=== PATIENT | male | born 1965 | race Caucasian/White ===

== ENCOUNTER 2018-11-19 06:00 | Day surgery (SDC) | payer BC ==
[~2018-11-19] VITALS: Ht 167 cm; Wt 83.2 kg
[~2018-11-19 06:00] MED LIST: TRAM50 PO
--- NOTE | 2018-11-19 07:21 | NUR ---
"Day surgery RN | to OR Patient ambulatory on admit. VSS. IV patent and flowing well. Skin prepped. Both doctors have seen patient. Patient states ride home available."
--- NOTE | 2018-11-19 07:27 | NUR ---
"DAY SURGERY RN | WAITING IN DAY SURGERY FOR DR. ZAMORANO TO FINISH PINK SHEET, TO OR NOW."
--- NOTE | 2018-11-19 09:33 | NUR ---
Patient up to Ambulate independently. Gait steady. Discharge instructions reviewed with patient. Patient verbalizes understanding. Copy given to patient to take home. Patient States Post-Procedure ride home has been arranged. Discharged via wheelchair to private car for ride home.
== END 2018-11-19 22:44 | disposition home or self-care (01) ==
LOC: ORSCMMR 06:00 → ORD 07:30 → ORSCMMR 07:30
PROVIDERS: Surgery
PROC: 0JBG0ZZ Excision of Right Lower Arm Subcutaneous Tissue and Fascia, Open Approach (ICD-10-PCS; principal; 2018-11-19 07:30)
PROC: 0JBH0ZZ Excision of Left Lower Arm Subcutaneous Tissue and Fascia, Open Approach (ICD-10-PCS; principal; 2018-11-19 07:30)
PROC: 0JBM0ZZ Excision of Left Upper Leg Subcutaneous Tissue and Fascia, Open Approach (ICD-10-PCS; principal; 2018-11-19 07:30)
PROC: 0JBD0ZZ Excision of Right Upper Arm Subcutaneous Tissue and Fascia, Open Approach (ICD-10-PCS; principal; 2018-11-19 07:30)
DX: D17.79 Benign lipomatous neoplasm of other sites (principal); Z87.891 Personal history of nicotine dependence
CPT/HCPCS: 88304; J0690; J2250; J2704; J3010; J7120